=== PATIENT | male | born 1985 | race Caucasian/White ===

== ENCOUNTER 2019-10-06 10:08 | Observation (INO) ==
[2019-10-06] MEDS ORDERED: Isovue-370 500 ML BOTTLE IVP ONE (10:16)
[2019-10-06] MEDS ORDERED: 0.9 % Sodium Chloride 1,000 ML IVC ONE (10:18)
[2019-10-06 10:58] LABS: Basophils # 0.1 K/mcL (0.0-0.2); Basophils % 0.5 %; Eosinophils # 0.1 K/mcL (0.0-0.6); Eosinophils % 0.9 %; Hematocrit 46.5 % (37.5-50.1); Hemoglobin 15.7 g/dL (12.9-16.9); Immature Granulocytes % 0.4 % (0-4); Lymphocytes # 2.1 K/mcL (0.6-4.6); Mean Corpuscular HGB Conc 33.8 g/dL (31.6-35.5); Mean Corpuscular Hemoglobin 28.4 pg (28.0-33.3); Mean Corpuscular Volume 84.2 fL (83.0-100.0); Monocytes % 7.5 %; Neutrophils # 9.7 K/mcL (1.6-8.9); Platelet Count 226 K/mcL (140-400); Red Blood Count 5.52 M/mcL (4.19-5.50); Red Cell Distribution Width 13.1 % (11.5-14.5); Segmented Neutrophils % 74.7 %
[2019-10-06 11:12] LABS: INR 1.2; Prothrombin Time 13.5 Seconds (9.4-12.1)
[2019-10-06 11:14] LABS: Activated Partial Thrombo Time 40.8 Seconds (26.0-36.0)
[2019-10-06 11:15] LABS: BUN/Creatinine Ratio 11 (6-26); Blood Urea Nitrogen 12 mg/dL (6-20); C-Reactive Protein 91 mg/L (Less than 10); Calcium 9.4 mg/dL (8.6-10.3); Carbon Dioxide 25 mEq/L (23-29); Chloride 102 mEq/L (98-107); Glucose 87 mg/dL (70-105); Osmolality,Calculated 275 (280-300); Potassium 4.3 mEq/L (3.5-5.1); Sodium 133 mEq/L (136-145); eGFR For African Americans > 60 (> 60); eGFR For Non-African Americans > 60 (> 60)
[2019-10-06] MEDS ORDERED: 0.9 % Sodium Chloride 1,000 ML IVC SCH (12:45)
[2019-10-06] MEDS ORDERED: Ipratropium/Albuterol Neb 3 ML IH ONE (15:14)
[2019-10-06] MEDS ORDERED: Ondansetron 4 MG/2 ML VIAL IVP PRN (15:14)
[2019-10-06] MEDS ORDERED: *HR* HYDROmorphone PF 0.5 MG/0.5 ML SYRINGE IVP PRN (15:14)
[2019-10-06] MEDS ORDERED: *HR* Promethazine 25 MG/ML VIAL IVP PRN (15:14)
[2019-10-06] MEDS ORDERED: *HR* Labetalol 20 MG/4 ML SYRINGE IVP PRN (15:14)
[2019-10-06] MEDS ORDERED: Ondansetron 4 MG/2 ML VIAL ONE (15:28)
[2019-10-06] MEDS ORDERED: Dexamethasone 4 MG/ML VIAL ONE (15:28)
[2019-10-06] MEDS ORDERED: Lidocaine -MPF 2% 2 ML VIAL ONE (15:28)
[2019-10-06] MEDS ORDERED: *HR* FentaNYL (PF) 100 MCG/2 ML VIAL ONE (15:28)
[2019-10-06] MEDS ORDERED: *HR* Propofol 200 MG/20 ML VIAL IVP ONE ×2 (15:28→15:47)
[2019-10-06] MEDS ORDERED: *HR* Midazolam HCl 2 MG/2 ML VIAL ONE (15:28)
[2019-10-06] MEDS ORDERED: *HR* Succinylcholine 200 MG/10 ML VIAL IVP ONE (15:33)
[2019-10-06] MEDS ORDERED: *HR* HYDROMORPHONE 2 MG/ML VIAL ONE ×2 (16:01→16:14)
[2019-10-06] MEDS ORDERED: *HR* OxyCODONE/APAP 5/325 TABLET PO PRN (17:07)
[2019-10-06] MEDS ORDERED: Vancomycin 1,750 MG in 0.9 % Sodium Chloride 250 ML IVPB ONE (17:07)
[2019-10-06] MEDS: Nicotine 21 MG PATCH.TD24 TD SCH (19:14)
[2019-10-06] MEDS: Pregabalin 75 MG CAPSULE PO SCH (20:03)
[2019-10-06] MEDS: 0.9 % Sodium Chloride 1,000 ML IVC SCH (20:03)
[2019-10-07 03:23] LABS: Basophils % 0.1 %; Immature Granulocytes % 0.5 % (0-4); Lymphocytes # 0.8 K/mcL (0.6-4.6); Lymphocytes % 6.6 %; Mean Corpuscular HGB Conc 33.9 g/dL (31.6-35.5); Mean Corpuscular Hemoglobin 28.1 pg (28.0-33.3); Mean Corpuscular Volume 82.8 fL (83.0-100.0); Monocytes # 0.2 K/mcL (0.0-1.3); Monocytes % 1.3 %; Neutrophils # 11.2 K/mcL (1.6-8.9); Platelet Count 235 K/mcL (140-400); Red Blood Count 4.95 M/mcL (4.19-5.50); Red Cell Distribution Width 12.7 % (11.5-14.5); Segmented Neutrophils % 91.5 %; White Blood Count 12.2 K/mcL (4.3-11.1)
[2019-10-07 03:24] LABS: Hemoglobin 13.9 g/dL (12.9-16.9)
[2019-10-07 03:44] LABS: BUN/Creatinine Ratio 16 (6-26); Blood Urea Nitrogen 15 mg/dL (6-20); Calcium 9.2 mg/dL (8.6-10.3); Carbon Dioxide 24 mEq/L (23-29); Chloride 104 mEq/L (98-107); Glucose 145 mg/dL (70-105); Osmolality,Calculated 279 (280-300); Potassium 4.5 mEq/L (3.5-5.1); Sodium 133 mEq/L (136-145); eGFR For African Americans > 60 (> 60); eGFR For Non-African Americans > 60 (> 60)
[2019-10-07] MEDS ORDERED: Levothyroxine 25 MCG TABLET PO ONE (09:00)
[2019-10-07] MEDS ORDERED: *HR* OxyCODONE/APAP 5/325 TABLET ONE (09:00)
[2019-10-07] MEDS ORDERED: Nicotine 21 MG PATCH.TD24 ONE (09:00)
[2019-10-07] MEDS ORDERED: Pregabalin 75 MG CAPSULE ONE (09:00)
[2019-10-07] MEDS ORDERED: Buprenorphine [Butrans 15 Mcg/Hr] TP SCH (15:00)
[2019-10-07] MEDS: Pregabalin 75 MG CAPSULE PO SCH ×2 (16:22→20:00)
[2019-10-07] MEDS: Nicotine 21 MG PATCH.TD24 TD SCH (16:22)
[2019-10-07] MEDS: Levothyroxine 25 MCG TABLET PO SCH (16:23)
[2019-10-07] MEDS: 0.9 % Sodium Chloride 1,000 ML IVC SCH (16:23)
[2019-10-08] MEDS: 0.9 % Sodium Chloride 1,000 ML IVC SCH (05:03)
[2019-10-08 06:40] VITALS: BP 118/58
[2019-10-08] MEDS: Pregabalin 75 MG CAPSULE PO SCH (09:59)
[2019-10-08] MEDS: Nicotine 21 MG PATCH.TD24 TD SCH (10:01)
[2019-10-08] MEDS: Levothyroxine 25 MCG TABLET PO SCH (10:01)
[2019-10-08] MEDS ORDERED: Aminoglycoside Consult 1 EACH MC ONE (11:21)
== END 2019-10-08 11:22 | disposition home or self-care (01) ==
LOC: EMEROOARM 10:08 → 3ANU 10:08 → SUATTDRO 14:40 → 3ANU 14:58
PROVIDERS: ADMIT Family Medicine; ATTEND Surgery